=== PATIENT | female | born 1995 | race Caucasian/White ===

== ENCOUNTER 2017-01-15 02:47 | Emergency (ER) | payer OTHER ==
[~2017-01-15] VITALS: Ht 162.6 cm; Wt 60.5 kg
[2017-01-15 02:57] VITALS: TEMP 36.3; Ht 162.6 cm; Wt 60.5 kg
--- NOTE | 2017-01-15 02:59 | EMERGENCY ROOM VISIT NOTE ---
History Report prepared by Oscaribjo: Geneva Gilliland Under the Supervision of: Dr. Kalyani Herron D.O. First contact with patient: 02:47 Chief Complaint: ALCOHOL OVERDOSE Stated Complaint: ALCOHOL History of Present Illness The patient is a 21 year old female who presents to the Emergency Room per EMS secondary to intoxication. Per EMS, the patient was drinking at a bar downw. She was found stumbling into the [facility] with a kim she could not identify. This occurred about an hour ago. The security at the [facility] called 911. The patient denies any drug use. This HPI is limited secondary to intoxication. Source of History: patient, EMS Onset: about an hour ago Position: other (global) Quality: other (intoxication) Review of Systems ROS is limited secondary to intoxication. Past Medical & Surgical Past medical and surgical history unobtainable secondary to intoxication. Family History Family history unobtainable secondary to intoxication. Social History Alcohol Use: occasionally Marital Status: single Housing Status: lives with roommate Occupation Status: [employer] student Current/Historical Medications No Active Prescriptions or Reported Meds Allergies Coded Allergies: No Known Allergies (Unverified , 01/15/17) Physical Exam Vital Signs Date Time Temp Pulse Resp B/P (MAP) Pulse Ox O2 Delivery O2 Flow Rate FiO2 01/15/17 03:00 76 01/15/17 02:57 36.3 63 15 109/83 100 Room Air Physical Exam General: Alert, cooperative, smells of alcohol. HEENT: Head - normocephalic and atraumatic Pupils are 4mm and sluggishly reactive to light. Extraocular eye muscles are intact, and sclera are anicteric. Nose - moist nasal mucosa without discharge. Mouth - moist buccal mucosa. Oropharynx is nonerythematous and there is no tonsillar exudate or edema noted. Neck: Supple; no JVD, nuchal rigidity, cervical lymphadenopathy. Heart: Regular rate and rhythm. There is a normal S1 and S2 with no murmurs, clicks, or gallops appreciated. Lungs: Clear to auscultation bilaterally with no wheezes, rales, or rhonchi. Abdomen: Soft, completely nontender, nondistended, with good bowel sounds. There are no palpable pulsatile masses or hepatosplenomegaly. There is no guarding, rigidity, or rebound noted. Extremities: No evidence of cyanosis, clubbing, or edema. There are easily palpable peripheral pulses. Skin: warm and dry with good turgor and no rashes. Medical Decision & Procedures Laboratory Results 01/15/17 03:00 Test 01/15/17 03:00 Anion Gap 10.0 mmol/L (3-11) Est Creatinine Clear Calc Drug Dose 99.9 ml/min Estimated GFR () 127.9 Estimated GFR (Non- 110.4 BUN/Creatinine Ratio 15.7 (10-20) Calcium Level 8.1 mg/dl (8.5-10.1) Ethyl Alcohol mg/dL 320.0 mg/dl (0-3) Laboratory results per my review. ED Course 0247: Past medical records reviewed. The patient was evaluated in room B11A. A complete history and physical exam was performed. The patient was placed in the prone position to avoid aspiration. She was observed on the cardiac care unit nurse and pulse oximeter. Labs were drawn as above. 0338: I reassessed the patient and she is fully awake. Vital signs are stable. 0431: I reassessed the patient and she is still fully awake. She is hemodynamically stable. 0525: The patient remains awake and is requesting discharge with some sober friends. 0700: The patient will be discharged with sober friends at this time. Medical Decision The patient is a 21 year old female who presents to the ED intoxicated. Differential diagnosis includes alcohol overdose, drug intoxication, hypoglycemia, head injury. Lab results show: Alcohol 320 Normal renal function Glucose 110 This is a 21-year-old female patient who was brought to the emergency department after consuming too much alcohol and stumbling around another apartment building. The patient was observed here in the emergency department until she was more sober. She remained completely awake throughout her entire stay here in the ER. I spent some time talking to the patient about the hazards of such excessive alcohol use. I explained to the patient that she would not be sober until sometime after noon today. She has not lost consciousness while here in the ER. Her vitals have remained stable. She will be discharged with sober friends around 7 AM this morning. Medication Reconcilliation Current Medication List: was personally reviewed by me Blood Pressure Screening Patient's blood pressure: Normal blood pressure Impression Primary Impression: Alcohol overdose Scribe Attestation The scribe's documentation has been prepared under my direction and personally reviewed by me in its entirety. I confirm that the note above accurately reflects all work, treatment, procedures, and medical decision making performed by me. Departure Information Prescriptions No Active Prescriptions or Reported Meds Patient Instructions My [facility] Health Problem Qualifiers Primary Impression: Alcohol overdose Encounter type: initial encounter Injury intent: accidental or unintentional Qualified Codes: T51.91XA - Toxic effect of unspecified alcohol , accidental (unintentional), initial encounter
[2017-01-15 03:27] LABS: BUN/CREATININE RATIO 15.7 (10-20); CALCIUM 8.1 mg/dl (8.5-10.1); CREATININE 0.77 mg/dl (0.60-1.20); POTASSIUM 3.2 mmol/L (3.5-5.1)
[2017-01-15 07:37] VITALS: BP 111/77; PULSE 99; O2SAT 100
== END 2017-01-15 07:38 | disposition home or self-care (01) ==
LOC: EDBD 02:47 → C.EDB 02:49
DX: T51.91XA Toxic effect of unspecified alcohol, accidental (unintentional), initial encounter (principal); F10.920 Alcohol use, unspecified with intoxication, uncomplicated; Y90.8 Blood alcohol level of 240 mg/100 ml or more